=== PATIENT | male | born 1975 | race African-American/Black ===

== ENCOUNTER 2024-10-16 00:59 | Emergency (ER) | payer OTHER ==
[~2024-10-16] VITALS: Ht 190.5 cm; Wt 99.0 kg
[2024-10-16 01:07] VITALS: BP 137/94; PULSE 59; RESP 18; TEMP 36.8; O2SAT 99
[2024-10-16 01:25] VITALS: TEMP 98.2
[2024-10-16] MEDS: ACETAMINOPHEN 325MG TABLET PO ONE (01:25)
[2024-10-16] MEDS: METOCLOPRAMIDE HCL 10MG TABLET PO ONE (01:25)
[2024-10-16] MEDS ORDERED: IBUP-2029 MT (02:43)
== END 2024-10-16 02:54 | disposition home or self-care (01) ==
LOC: ER 01:09
DX: G43.909 Migraine, unspecified, not intractable, without status migrainosus (principal); I10 Essential (primary) hypertension
CPT/HCPCS: 99283; J8597

== ENCOUNTER 2024-10-21 10:40 | Emergency (ER) | payer SELFPAY ==
[~2024-10-21] VITALS: Ht 190.5 cm; Wt 95.0 kg
[~2024-10-21 10:40] MED LIST: IBUP-2029 MT
[2024-10-21 10:59] VITALS: TEMP 36.9; O2SAT 100
[2024-10-21] MEDS: SUMATRIPTAN SUCCINATE 6MG/0.5ML VIAL SUBCUT ONE (13:30)
[2024-10-21] MEDS ORDERED: IBUPROFEN 800MG TABLET PO ONE (13:45)
[2024-10-21] MEDS: IBUPROFEN 800MG TABLET PO NR (13:54)
[2024-10-21] MEDS ORDERED: IBUP-2030 MT (17:28)
[2024-10-21] MEDS ORDERED: SUMA50TA16 MT (17:28)
[2024-10-21 17:40] VITALS: BP 148/95; PULSE 82; RESP 17; O2SAT 99
== END 2024-10-21 17:48 | disposition home or self-care (01) ==
LOC: ER 10:40
DX: G43.909 Migraine, unspecified, not intractable, without status migrainosus (principal); Z98.890 Other specified postprocedural states
CPT/HCPCS: 96372; 99283; J3030; Z7610